=== PATIENT | male | born 1970 | race Hispanic/Latino ===

== ENCOUNTER 2021-11-29 14:16 | Emergency (ER) | payer OTHER, MEDICAID, SELFPAY ==
[2021-11-29 14:20] VITALS: BP 128/79; PULSE 92; RESP 18; TEMP 37.2; O2SAT 96
[2021-11-29 14:54] LABS: COVID19 -Nasal RAPID POSITIVE (Negative)
--- NOTE | 2021-11-29 16:56 | ED.GENADULT ---
HPI - General Adult General Chief complaint: Fever Stated complaint: Covid symptoms, exposed to son Time Seen by Provider: 11/29/21 16:48 Source: patient Mode of arrival: Ambulatory History of Present Illness HPI narrative: Patient is a 51-year-old male. Here for evaluation of COVID symptoms to include fatigue and fevers and headache and malaise and cough. Symptoms started last evening. Patient has had 1 Moderna COVID vaccine up to this point. Patient's grandson tested positive for COVID last week. Patient is here for evaluation of symptoms. Review of Systems Constitutional Constitutional: Reports as per HPI and Reports system reviewed and no additional complaints, except as documented Cardiovascular Cardiovascular: Reports as per HPI and Reports system reviewed and no additional complaints, except as documented Respiratory Respiratory: Reports as per HPI and Reports system reviewed and no additional complaints, except as documented Integumentary/Breasts Skin/Breast: Reports system reviewed and no additional complaints, except as documented Neurologic Neurologic: Reports system reviewed and no additional complaints, except as documented and Reports as per HPI Psychiatric Psychiatric: Reports system reviewed and no additional complaints, except as documented Hematologic/Lymphatic On Anticoagulants: No Patient History Medical History CVA (cerebral vascular accident) Social History lives independently: Yes Exam Initial Vital Signs Initial Vital Signs: Vital Signs Temperature 99.0 F 11/29/21 14:20 Pulse Rate 92 H 11/29/21 14:20 Respiratory Rate 18 11/29/21 14:20 Blood Pressure 128/79 11/29/21 14:20 Pulse Oximetry 96 11/29/21 14:20 HENOH Head: normal to inspection and normocephalic Resp Effort & Inspection: normal respiratory effort Auscultation: clear to auscultation bilaterally Cardio Rate: regular rate Rhythm: regular rhythm Skin General: no rashes or lesions noted Neuro General: patient alert, patient awake and moves all extremities Extrem General: normal to inspection Course Orders Ordered: ED Orders 11/29/21 14:46 COVID19 -Nasal swab/Pre-Proc Stat Vital Signs Vital signs: Vital Signs - 8 hr 11/29/21 14:20 Temperature 99.0 F Pulse Rate 92 H Respiratory Rate 18 Blood Pressure 128/79 Pulse Oximetry 96 Medical Decision Making Lab Data Labs: Lab Results 11/29/21 Range/Units 14:46 SARS-CoV-2 (PCR) Positive H (Negative) MDM Narrative Medical decision making narrative: Patient is not hypoxic. No respiratory distress. Is COVID positive. Lungs are clear. No indication for antibiotics. No indication for admission in the hospital. We discussed return precautions and follow-up instructions. Patient expressed understanding and agreement. Discharge Plan Departure Patient Disposition: Home Clinical Impression: COVID-19 Instructions: DI for COVID-19 (Suspected or Confirmed ) Activity Restrictions/Additional Instructions: You can take Tylenol for any headaches or fevers. Continue take the rest of her medications as directed. Contact your primary doctor for follow-up. Return to the emergency department for any new or worsening symptoms
== END 2021-11-29 17:00 | disposition home or self-care (01) ==
PROVIDERS: Emergency Provider Emergency Medicine
DX: U07.1 COVID-19 (principal)
CPT/HCPCS: 87635; 99281; 99282; C9803

== ENCOUNTER 2024-04-29 15:00 | Outpatient (RCR) | payer OTHER, MEDICAID, SELFPAY ==
--- NOTE | 2024-04-29 17:53 | PT.OIE ---
Current Diagnoses Ataxia, unspecified (04/29/24) Unspecified injury of head, initial encounter (04/29/24) Past Medical History (Last Reviewed 11/29/21 @ 17:28 by Sean Wood DO) CVA (cerebral vascular accident) Visit Care Team Role Provider Type Jesenia Shaver MD Family Provider Non-Staff Primary Care Provider Specialty: Family Practice [facility] [address] [facility], [place], [address] Email: Jadiel Bucio PA-C Attending Provider Non-Staff Referring Provider Specialty: Medical Address: [address] [place], [place] [address]. [facility] [address], [place], [address] Email: Physical Therapy Initial Evaluation PT-OP-A Visit Information Start: 04/29/24 15:47 Freq: Status: Active Protocol: Document 04/29/24 15:15 DCW (Rec: 04/29/24 15:52 DCW [id number]) Out-Patient Physical Therapy Visit Information Visit Information Visit Type Initial Evaluation Visit Start Time 15:15 Visit Stop Time 15:45 Visit Number 1 Number of RN L AND D Visits 0 Evaluation Information Evaluation Date 04/29/24 PT-OP-B Current Condition Start: 04/29/24 15:47 Freq: Status: Active Protocol: Document 04/29/24 15:15 DCW (Rec: 04/29/24 15:52 DCW [id number]) Current Condition History of Current Condition Onset Date April 2020 Current Complaints Four years s/p cerebellar CVA History of Current Condition Pt is a 54 year old male presenting with skilled therapy four years s/p cerebellar CVA. Pt reports that he suffered a CVA at home , was taken to the local hospital, and then life- flighted down to [place]. Reports he was told he actually on the flight and had to be revived. Was told following discharge to try chair yoga, which he has been doing ever since, as well as going for 1-2 mile walks daily (weather permitting). Pt ambulates with [facility] [place] [place]. Lives with his daughter, Elza, and grandkids, who are able to help him, but overall he is fairly independent. Admits there have been no falls, no recent changes, and does not know exactly why he was all of a sudden referred to PT four years after his CVA. PT-OP-C Subjective Start: 04/29/24 15:47 Freq: Status: Active Protocol: Document 04/29/24 15:15 DCW (Rec: 04/29/24 15:55 DCW [id number]) OP-PT Subjective Patient Comments Patient Comments I don't know why they're sending me here now. It probably would have made more sense to do this four years ago. Patient Reported Progress Same PT-OP-D Balance Start: 04/29/24 15:47 Freq: Status: Active Protocol: Document 04/29/24 15:15 DCW (Rec: 04/29/24 15:55 DCW [id number]) Balance Tests Colvin Balance Test Colvin Balance Test Score 53/56 Colvin Balance Assessment Evaluation Sitting to Standing Ability Independent w/out Hands Unsupported Stance Safely- 2 minutes Sitting Unsupported, Feet on Floor Safely- 2 minutes Standing to Sitting Ability Safely, Minimal Hand Use Transfer Ability Safely, Minimal Hand Use Unsupported Stance- Eyes Closed Supervision, 10 seconds Unsupported Stance- Eyes Open Independent, 1 minute Reaching Forward Standing Safely, 5 inches Pick- Up Object From Floor Independent/Safe Look Behind Shoulder - Standing Shifts Weight Unilateral Turning 360 Degrees Turns Bilateral, < 4 secs Unsupported Stance, Alternating Feet on (I)- 8 Steps in 20 secs Stair Unsupported Tandem Stance Achieves Tandem Unilateral Leg Stance Lifts Leg/Holds 10 secs Total Score Colvin Total Score (out of 56 points) 53 Colvin Impairment Rating 1 to 19% Impaired (Score 45-55 ) PT-OP-G Mobility & Gait Start: 04/29/24 15:47 Freq: Status: Active Protocol: Document 04/29/24 15:15 DCW (Rec: 04/29/24 15:55 DCW [id number]) OP Gait Assessment Comments Gait Comments Pt ambulates WNL using a walking stick. No indications of ataxia, no LOB, no path deviation PT-OP-T Assessment and Plan Start: 04/29/24 15:47 Freq: Status: Active Protocol: Document 04/29/24 15:15 DCW (Rec: 04/29/24 17:53 DCW [id number]) Physical Therapy Assessment Assessment Summary Assessment Pt presents to skilled therapy four years s/p cerebellar CVA . Pt reports no recent change in function. Pt reports no recent falls. Pt has been very compliant with independent exercise, including chair yoga and daily walks. Active with his grandkids. Colvin Balance scale score of 53/56. No indications that out-patient PT required at this time, will be discharged following initial evaluation. Pt agreeable with this plan. Physical Therapy Plan Frequency and Duration Frequency of Treatment 1x/Week Plan of Care Start Date 04/29/24 Plan of Care End Date 04/30/24 Discharge Physical Therapy Discharge Comments No further out-pt therapy indicated at this time.
--- NOTE | 2024-04-29 17:53 | PT.OPPOC ---
Physical, Occupational & Speech Therapy At [facility] Current Diagnoses Ataxia, unspecified (04/29/24) Unspecified injury of head, initial encounter (04/29/24) Visit Care Team Role Provider Type Jesenia Shaver MD Family Provider Non-Staff Primary Care Provider Specialty: Family Practice Address: [address] [facility], [place], [address] Email: Jadiel Bucio PA-C Attending Provider Non-Staff Referring Provider Specialty: Medical Address: [address] [facility] [address], [place], [address] Email: Plan Of Care PT-OP-T Assessment and Plan Start: 04/29/24 15:47 Freq: Status: Active Protocol: Document 04/29/24 15:15 DCW (Rec: 04/29/24 17:53 DCW [id number]) Physical Therapy Assessment Assessment Summary Assessment Pt presents to skilled therapy four years s/p cerebellar CVA . Pt reports no recent change in function. Pt reports no recent falls. Pt has been very compliant with independent exercise, including chair yoga and daily walks. Active with his grandkids. Colvin Balance scale score of 53/56. No indications that out-patient PT required at this time, will be discharged following initial evaluation. Pt agreeable with this plan. Physical Therapy Plan Frequency and Duration Frequency of Treatment 1x/Week Plan of Care Start Date 04/29/24 Plan of Care End Date 04/30/24 Discharge Physical Therapy Discharge Comments No further out-pt therapy indicated at this time. Plan of Care Dates Plan of Care Start Date 04/29/24 Plan of Care End Date 04/30/24 Electronically Signed by: Cb Covarrubias, PT 04/29/24 [id number] If you are in agreement with this Plan of Care, please return a signed and dated copy. I have reviewed this Plan of Care and certify that the skilled therapy services above are required to meet the patient?s needs. Physician Signature Date Printed Name and Credentials Clinical Instructor Signature Printed Name and Credentials
== END 2024-05-05 09:56 | disposition home or self-care (01) ==
LOC: PHYS 15:00
PROVIDERS: Family Provider Family Medicine; PCP Family Medicine; Referring Provider Physician Assistant; Visit Provider Physician Assistant
DX: S09.90XA Unspecified injury of head, initial encounter (principal); R27.0 Ataxia, unspecified
CPT/HCPCS: 97161